=== PATIENT | male | born 2005 | race Caucasian/White ===

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

== ENCOUNTER 2024-01-08 11:18 | Outpatient (CLI) | payer SELFPAY ==
[2024-01-08 11:35] LABS: Basophils Absolute Auto 0.03 K/mm3 (0.00-0.10); Basophils Percent Auto 0.6 % (0.0-1.0); Eosinophils Absolute Auto 0.12 K/mm3 (0.02-0.50); Eosinophils Percent Auto 2.5 % (1.0-6.0); Hematocrit 43.6 % (40.0-54.0); Immature Granulocyte Absolute 0.01 K/mm3 (0.00-0.00); Immature Granulocyte Percent A 0.2 % (0.0-0.0); Lymphocytes Absolute Auto 1.51 K/mm3 (1.10-4.50); Mean Corpuscular HGB Conc 34.4 g/dL (32-36); Mean Corpuscular Hemoglobin 27.5 pg (27.0-31.0); Mean Corpuscular Volume 79.9 fL (78.0-102.0); Mean Platelet Volume 9.4 fl (8.7-11.0); Monocytes Absolute Auto 0.41 K/mm3 (0.10-0.90); Monocytes Percent Auto 8.7 % (2.0-11.0); Neutrophils Absolute Auto 2.64 K/mm3 (1.70-7.20); Platelet Count Result 309 K/mm3 (150-420); Red Blood Count 5.46 M/mm3 (4.70-6.10); Red Cell Distribution Width 11.5 % (11.6-14.4); White Blood Count 4.7 K/mm3 (4.8-10.8)
[2024-01-08 12:31] LABS: Alanine Aminotransferase 22 U/L (16-63); Albumin Level 4.3 g/dL (3.4-5.0); Alkaline Phosphatase 111 U/L (65-260); Anion Gap 8 mmol/L (4-12); Aspartate Amino Transferase 16 U/L (15-37); Bilirubin,Total 0.9 mg/dL (0.00-1.00); Blood Urea Nitrogen 11 mg/dL (7-18); Calcium 9.6 mg/dL (8.5-10.1); Carbon Dioxide 31 mmol/L (21-32); Chloride 102 mmol/L (98-108); Cholesterol 138 mg/dL (0-200); Estimated Glomerular Filt Rate > 60; Glucose 83 mg/dL (70-99); HDL Direct 45 mg/dL (40-60); LDL Cholesterol Calculated 81 mg/dL (<130); Osmolality Calculated 290 mOsm/kg (285-295); Potassium 4.5 mmol/L (3.5-5.1); Sodium 141 mmol/L (136-145); Thyroid Stimulating Hormone 1.46 uIU/mL (0.52-4.13); Total Protein 7.6 g/dL (6.4-8.2); Triglycerides 61 mg/dL (0-150)
== END 2024-01-08 11:19 | disposition home or self-care (01) ==
DX: Z79.899 Other long term (current) drug therapy (principal)
CPT/HCPCS: 36415; 80053; 80061; 83036; 84443; 85025

== ENCOUNTER 2025-03-20 05:26 | Emergency (ER) | payer SELFPAY ==
--- NOTE | ~2025-03-20 | XR_ITS ---
XR knee RT min 4V 03/20/2025 05:54 INDICATION: Right knee pain PROCEDURE: 4 views right knee COMPARISON: No prior studies for comparison. FINDINGS: Fracture, dislocation or subluxation is not identified. The soft tissues appear within norm al limits. No foreign bodies are identified. IMPRESSION: 1: NO ACUTE BONE OR JOINT ABNORMALITY IDENTIFIED. Reviewed, dictated and finalized at location A.
[2025-03-20 05:26] VITALS: BP 132/77; PULSE 92; RESP 16; TEMP 37.1; O2SAT 99
--- OUTSIDE RECORDS SUMMARY | 2025-03-20 05:29 | XMS_ITS | Clinical Summary ---
Author Organization [facility] Address [address] [place] [address] Care Team Providers Care Nurse Staff Industrial Name Role Phone No, Physician Primary Care Provider [phone] Allergies No known active allergies Medications No known medications Active Problems Problem Noted Date Diagnosed Date Phimosis 08/19/2009 Immunizations Immunization Administration Dates Next Due Tdap 06/19/2024 Social History Tobacco Use Types Packs/Day Years Used Date Smoking Tobacco: Never Assessed Personal Safety Answer Date Recorded Have you ever been in or are you currently in a harmful physical or emotional relationship or is someone making you feel afraid or unsafe? 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 Gender Identity Not on file Sexual Orientation Not on file Obstetrics History Last Filed Vital Signs Vital Sign Reading Time Taken Comments Blood Pressure 118/71 06/19/2024 12:42 PM CDT Pulse 70 06/19/2024 12:42 PM CDT Temperature 36.7 C (98 F) 06/19/2024 11:38 AM CDT Respiratory Rate 16 06/19/2024 12:42 PM CDT Oxygen Saturation 100% 06/19/2024 12:42 PM CDT Inhaled Oxygen Concentration - - Weight 81.6 kg (180 lb) 06/19/2024 11:38 AM CDT Height 185.4 cm (6' 1) 06/19/2024 11:38 AM CDT Body Mass Index 23.75 06/19/2024 11:38 AM CDT Plan of Treatment Health Maintenance Due Date Last Done Comments Depression Screening 2004 Hepatitis C Screening 2004 HPV Vaccines (1 - Male 3-dose series) 12/15/2019 Meningococcal B Vaccine (1 of 2 - Standard) 2020 Regular Well Visit/Exam 18-64 2022 Covid-19 Vaccine ( season) 2024 03/03/2021, 02/10/2021 Influenza Vaccine (#1) 2025 11/20/2019 DTaP/Tdap/Td Vaccine (8 - Td or Tdap) 06/19/2034 06/19/2024, 04/12/2016, 04/20/2009, Additional history exists Hepatitis B Screening Completed 06/19/2005 , 05/01/2005, 02/20/2005, Additional history exists Pneumococcal vaccine <65 Completed 006, 06/19/2005, 05/01/2005, Additional history exists Varicella Vaccines Completed 07/10/2011, 0 04/20/2009, 12/17/2005, Additional history exists Meningococcal Vaccine Aged Out 04/12/2016 No paras amado eligible based on patient's age to complete this topic Insurance [facility] [employer] [place] Care Teams Nurse Staff Industrial Relationship Specialty Start Date End Date No, Physician PCP - General 06/19/24
--- OUTSIDE RECORDS SUMMARY | 2025-03-20 05:29 | XMS_ITS | Referral Summary ---
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
--- OUTSIDE RECORDS SUMMARY | 2025-03-20 05:29 | XMS_ITS | Clinical Summary ---
Author Organization [facility] Address [address] [place] [address] [place] [address] Care Team Providers Care Tape Cutting Machine Operator Name Role Phone Bryan Pelletier MD Primary Care Provider Source Comments [facility],non-owned Affiliates and Associated Physician Practices is amultiple site organization consisting of ambulatory clinics and hospital sitesin [place], [place], [place] and [place]. This disclosure is being madepursuant to the Care Everywhere program and may not contain all information available regarding this patient. Last updated 18.[facility] [place] Allergies No known active allergies Medications * Be aware that medications may not be up to date on this document. Alwaysverify current medications with the patient. 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 Gender Identity Not on file Sexual Orientation Not on file Plan of Treatment Health Maintenance Due Date Last Done Comments HIV SCREENING 12/15/2019 HPV VACCINE (1 - Male 3-dose series) 12/15/2019 MENINGOCOCCAL (Group B) VACC INE SHARED DECISION-MAKING (1 of 2 - Standard) 2020 HEPATITIS C SCREENING 12/10/2022 DTAP/TDAP/TD VACCINES (1 - Tdap) 12/15/2023 HEPATITIS B VACCINE (1 of 3 - 19+ 3-dose series) 12/15/2023 COVID-19 VACCINE (2023-2 5 season) 2024 DEPRESSION SCREENING 09/02/2024 INFLUENZA VACCINE (#1) 2025 ZOSTER VACCINE (1 of 2) 2054 HIB VACCINE Aged Out No longer eligi ble based on patient's age to complete this topic MENINGOCOCCAL GROUPS A/C/Y/W VACCINE Aged Out No longer eligible b ased on patient's age to complete this topic PNEUMOCOCCAL VACCINE Aged Out No long er eligible based on patient's age to complete this topic Insurance [facility] Care Teams Tape Cutting Machine Operator Relationship Specialty Start Date End Date Bryan Pelletier MD [address] [place] [address] [place] [address] PCP - General Family Medicine 08/20/17
--- NOTE | 2025-03-20 05:39 | ED.LOWEXIN ---
HPI - Extremity Injury (Lower) General Chief Complaint: Extremity Injury, Lower <Alen Kaufman MD - Last Filed: 03/20/25 07:00> Stated Complaint: right knee injury <Alen Kaufman MD - Last Filed: 03/20/25 07:00> Time Seen by Provider: 03/20/25 05:33 <Alen Kaufman MD - Last Filed: 03/20/25 07:00> Source: patient <Alen Kaufman MD - Last Filed: 03/20/25 07:00> Mode of arrival: ambulatory <Alen Kaufman MD - Last Filed: 03/20/25 07:00> Limitations: no limitations <Alen Kaufman MD - Last Filed: 03/20/25 07:00> History of Present Illness HPI Narrative: Patient is a 19-year-old male with a right knee injury while bowling this evening. Patient went to bowl and it appeared his right knee twisted and pivoted in the wrong way and therefore his kneecap slid to the lateral aspect. His father replace the kneecap and he is here for continued pain of the knee after this event. <Alen Kaufman MD - Last Filed: 03/20/25 07:00> MD complaint: knee injury ( Right) <Alen Kaufman MD - Last Filed: 03/20/25 07:00> Onset (ago): day(s) ( 1) <Alen Kaufman MD - Last Filed: 03/20/25 07:00> Type of Injury: other ( patient has twisting of the right knee while bowling with a kneecap dislocation and resolution from his father to replace the kneecap) <Alen Kaufman MD - Last Filed: 03/20/25 07:00> Place: home <Alen Kaufman MD - Last Filed: 03/20/25 07:00> Severity: moderate <Alen Kaufman MD - Last Filed: 03/20/25 07:00> Severity scale (1-10): 4 <Alen Kaufman MD - Last Filed: 03/20/25 07:00> Relieving factors: nothing <Alen Kaufman MD - Last Filed: 03/20/25 07:00> Exacerbating factors: weight bearing, movement and palpation <Alen Kaufman MD - Last Filed: 03/20/25 07:00> Context: other ( patient was bowling and twisted right knee) <Alen Kaufman MD - Last Filed: 03/20/25 07:00> Associated symptoms: snap/pop sensation, swelling and able to partially bear weight <Alen Kaufman MD - Last Filed: 03/20/25 07:00> Other symptoms: none <Alen Kaufman MD - Last Filed: 03/20/25 07:00> Treatments prior to arrival: cold therapy <lAen Kaufman MD - Last Filed: 03/20/25 07:00> Related Data Home Medications: Home Medications ?Medication ?Instructions ?Recorded ?Confirmed ?Last Taken ?Type No Home Medications 08/23/22 03/20/25 Unknown History <Alen Kaufman MD - Last Filed: 03/20/25 07:00> Allergies/Adverse Reactions: Allergies Allergy/AdvReac Type Severity Reaction Status Date / Time No Known Allergies Allergy Verified 03/20/25 05:31 <Alen Kaufman MD - Last Filed: 03/20/25 07:00> Review of Systems Review of Systems: All systems reviewed & are unremarkable except as noted in HPI and below <Alen Kaufman MD - Last Filed: 03/20/25 07:00> Constitutional: Constitutional: Reports no additional constitutional complaints <Alen Kaufman MD - Last Filed: 03/20/25 07:00> Eyes: Eyes: Reports no additional eye complaints <Alen Kaufman MD - Last Filed: 03/20/25 07:00> ENT: Reports system reviewed and no additional complaints, except as documented <Alen Kaufman MD - Last Filed: 03/20/25 07:00> Cardiovascular: Cardiovascular: Reports no additional cardiovascular complaints <Alen Kaufman MD - Last Filed: 03/20/25 07:00> Respiratory: Respiratory: Reports no additional respiratory complaints <Alen Kaufman MD - Last Filed: 03/20/25 07:00> Gastrointestinal: Gastrointestinal: Reports no additional gastrointestinal complaints <Alen Kaufman MD - Last Filed: 03/20/25 07:00> Genitourinary: Genitourinary: Reports no additional male genitourinary complaints <Alen Kaufman MD - Last Filed: 03/20/25 07:00> Musculoskeletal: Musculoskeletal: Reports no additional musculoskeletal complaints <Alen Kaufman MD - Last Filed: 03/20/25 07:00> Integumentary/Breasts: Skin/Breast: Reports system reviewed and no additional complaints, except as docu <Alen Kaufman MD - Last Filed: 03/20/25 07:00> Neurologic: Reports system reviewed and no additional complaints, except as documented <Alen Kaufman MD - Last Filed: 03/20/25 07:00> Psychiatric: Psychiatric: Reports no additional psychiatric complaints <Alen Kaufman MD - Last Filed: 03/20/25 07:00> Endocrine: Endocrine: Reports no additional endocrine complaints <Alen Kaufman MD - Last Filed: 03/20/25 07:00> Hematologic/Lymphatic: Hematologic/Lymphatic: Reports no additional hematologic/lymphatic complaints <Alen Kaufman MD - Last Filed: 03/20/25 07:00> Allergic/Immunologic: Allergic/Immunologic: Reports no additional allergic/immunologic complaints <Alen Kaufman MD - Last Filed: 03/20/25 07:00> PMFSH Past Medical History Medical History: Medical History Abdominal pain Strep throat GERD (gastroesophageal reflux disease) Bipolar depression <Alen Kaufman MD - Last Filed: 03/20/25 07:00> Surgical History Surgical History: Surgical History Scalp laceration No history of previous surgery <Alen Kaufman MD - Last Filed: 03/20/25 07:00> Social History Social History: Social History Smoking status: Never smoker Tobacco type: e-cigarettes/vaping Alcohol intake: never Substance use: never Substance use type: marijuana Living arrangements: with family Occupation/Education: student <Alen Kaufman MD - Last Filed: 03/20/25 07:00> Exam Const: General: healthy appearing <Alen Kaufman MD - Last Filed: 03/20/25 07:00> Nutritional Appearance: well nourished <Alen Kaufman MD - Last Filed: 03/20/25 07:00> Orientation/consciousness: patient oriented x3 <Alen Kaufman MD - Last Filed: 03/20/25 07:00> HENMT: Head: normal to inspection <Alen Kaufman MD - Last Filed: 03/20/25 07:00> Ears: external ears normal <Alen Kaufman MD - Last Filed: 03/20/25 07:00> Face/Nose/Sinus: Normal external nose present <Alen Kaufman MD - Last Filed: 03/20/25 07:00> Eyes: Conjunctivae: conjunctivae normal <MD Theo Brand Last Filed: 03/20/25 07:00> Pupils: Equal, round and reactive pupils present <Alen Kaufman MD - Last Filed: 03/20/25 07:00> EOM: EOMs intact bilaterally <Alen Kaufman MD - Last Filed: 03/20/25 07:00> Neck: Neck: normal visual inspection <Alen Kaufman MD - Last Filed: 03/20/25 07:00> Chest: Chest palpation & inspection: normal inspection of the chest <Alen Kaufman MD - Last Filed: 03/20/25 07:00> Resp: Effort & Inspection: normal respiratory effort and not labored <MD Theo Brand Last Filed: 03/20/25 07:00> Auscultation: clear to auscultation bilaterally and no crackles <Alen Kaufman MD - Last Filed: 03/20/25 07:00> Cardio: Rate: regular rate <Alen Kaufman MD - Last Filed: 03/20/25 07:00> Rhythm: regular rhythm <Alen Kaufman MD - Last Filed: 03/20/25 07:00> Heart sounds: no murmurs <Alen Kaufman MD - Last Filed: 03/20/25 07:00> GI: Inspection: non-distended <Alen Kaufman MD - Last Filed: 03/20/25 07:00> GI Palp: Yes Soft to palpation and Yes Tenderness to palpation present (GI) <Alen Kaufman MD - Last Filed: 03/20/25 07:00> Auscultation: normal bowel sounds <Alen Kaufman MD - Last Filed: 03/20/25 07:00> : General: Yes bladder normal to palpation <Alen Kaufman MD - Last Filed: 03/20/25 07:00> Back/Spine/Pelvis: Back: no CVA tenderness <Alen Kaufman MD - Last Filed: 03/20/25 07:00> Skin: General skin exam: normal color <Alen Kaufman MD - Last Filed: 03/20/25 07:00> Rashes: no rashes <Alen Kaufman MD - Last Filed: 03/20/25 07:00> Wounds: no wounds <Alen Kaufman MD - Last Filed: 03/20/25 07:00> Neuro: General: patient oriented x3, moves all extremities, no meningeal signs, no focal motor deficits and CN's II-XI intact bilaterally <Alen Kaufman MD - Last Filed: 03/20/25 07:00> Extrem: General: normal to inspection <Alen Kaufman MD - Last Filed: 03/20/25 07:00> Psych: Mental Status: mental status grossly normal <MD Theo Brand Last Filed: 03/20/25 07:00> Affect: Anxious affect present <Alen Kaufman MD - Last Filed: 03/20/25 07:00> Attitude: cooperative <Alen Kaufman MD - Last Filed: 03/20/25 07:00> Course Course Emergency Course: (699) I received report and assumed care of this patient at shift change. Patient is 19 year old male who had subluxation of his right knee cap last night while bowling. His father put the knee cap back in place. Patient states he has had this happen before. PE: no acute findings, non-tender, stable, NV intact XR R Knee: reviewed XR films, no acute findings Tx: Delvin wrap *reviewed and discussed results with patient and support person. Discussed further management. Both voice understanding and agreement. Instructions <Gelacio Gudino MD - Last Filed: 03/20/25 08:32> Vital Signs Vital signs: Vital Signs Temperature 37.1 C 03/20/25 05:26 Pulse Rate 92 03/20/25 05:26 Respiratory Rate 16 03/20/25 05:26 Blood Pressure 132/77 03/20/25 05:26 Pulse Oximetry 99 03/20/25 05:26 Oxygen Delivery Room Air 03/20/25 05:26 Temperature 37.1 C 03/20/25 05:26 Pulse Rate 92 03/20/25 05:26 Respiratory Rate 16 03/20/25 05:26 Blood Pressure 132/77 03/20/25 05:26 Pulse Oximetry 99 03/20/25 05:26 Oxygen Delivery Room Air 03/20/25 05:26 <Alen Kaufman MD - Last Filed: 03/20/25 07:00> Vital Signs Temperature 37.1 C 03/20/25 05:26 Pulse Rate 92 03/20/25 05:26 Respiratory Rate 16 03/20/25 05:26 Blood Pressure 132/77 03/20/25 05:26 Pulse Oximetry 99 03/20/25 05:26 Oxygen Delivery Room Air 03/20/25 05:26 Temperature 37.1 C 03/20/25 05:26 Pulse Rate 92 03/20/25 05:26 Respiratory Rate 16 03/20/25 05:26 Blood Pressure 132/77 03/20/25 05:26 Pulse Oximetry 99 03/20/25 05:26 Oxygen Delivery Room Air 03/20/25 05:26 <Gelacio Gudino MD - Last Filed: 03/20/25 08:32> MDM - Extremity Injury (Lower) MDM Narrative Medical decision making narrative: patient is a 19-year-old male with a right knee injury today while bowling. We will get x-rays of the right knee. Pain management with Toradol. Signed out case oncoming physician. <Alen Kaufman MD - Last Filed: 03/20/25 07:00> Imaging Data Attestation: I personally reviewed and interpreted this imaging study as follows: <Alen Kaufman MD - Last Filed: 03/20/25 07:00> Discharge Plan Discharge Clinical Impression: Patellar subluxation <Alen Kaufman MD - Last Filed: 03/20/25 07:00> Patient Disposition: Home <Alen Kaufman MD - Last Filed: 03/20/25 07:00> Condition: Stable <Alen Kaufman MD - Last Filed: 03/20/25 07:00> Instructions: Patellar Dislocation (ED) <Alen Kaufman MD - Last Filed: 03/20/25 07:00> Additional Instructions: Weight bearing as tolerated Delvin wrap, Ice and Elevate for swelling Tylenol, Ibuprofen and Aleve as needed Follow up with your Primary Care Provider <Alen Kaufman MD - Last Filed: 03/20/25 07:00> Patient Language: Estonian <Alen Kaufman MD - Last Filed: 03/20/25 07:00> Prescriptions: No Action No Home Medications <Alen Kaufman MD - Last Filed: 03/20/25 07:00> Follow-up/Referrals: Emani Olea MD [Primary Care Provider] - <Alen Kaufman MD - Last Filed: 03/20/25 07:00> Time of Disposition: 08:30 <Alen Kaufman MD - Last Filed: 03/20/25 07:00> 08:30 <Gelacio Gudino MD - Last Filed: 03/20/25 08:32>
[2025-03-20] MEDS: KETOROLAC (*BKC) 60 MG/2 ML VIAL IM (05:50)
--- OUTSIDE RECORDS SUMMARY | 2025-03-20 05:54 | XMS_ITS | Clinical Summary ---
Author Organization [facility] Address [address] [place] [address] Care Team Providers Care Mechanic General Operational Test Name Role Phone None, Provider MD Primary Care Provider Unavaila ble Allergies No known active allergies Medications sertraline (ZOLOFT) 50 MG tablet Take 1 tablet (50 mg total) by mouth daily. 4 Active ARIPiprazole (ABILIFY) 5 MG tablet Take 1 tablet (5 mg total) by mouth nightly at bedtime. 4 Active ondansetron (ZOFRAN-ODT) 4 MG disintegrating tabletIndications:N ausea and vomiting, unspecified vomiting type Take 1 tablet (4 mg total) by mouth every 8 (eight) hours as needed for Nausea. 20 tablet 5 Active famotidine (PEPCID) 20 MG tabletIndications:N ausea and vomiting, unspecified vomiting type Take 1 tablet (20 mg total) by mouth 2 (two) times daily. 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 Overview (03/26/2019): Date Onset: 06/17/2014 Phimosis 08/19/2009 Resolved Problems Problem Noted Date Diagnosed Date Resolved Date Acute upper respiratory infection 10/06/2012 10/14/2019 Fever 10/06/2012 10/14/2019 Routine infant or child health check 10/06/2012 10/14/2019 Immunizations Immunization Administration Dates Next Due Dtap 03/25/2006, 5,05/01/2005,02/01 Dtap (Generic) 04/20/2009, 6,06/19/2005,04/04,02/20/2005 Hepatitis A (Generic) 01/02/2007,06/26/2006 Hepatitis A Vaccine - 2 Dose 01/02/2007,06/26/20 Hepatitis B 06/19/2005, 5,02/20/2005,12/01 Hepatitis B Pediatric 06/19/2005, 005,02/20/2005,12/01 Hib (Generic) 06/26/2006, 6,05/01/2005,02/01 Influenza Adult (Generic) 11/20/2019 MENINGOCOCCAL A C Y&W-135 oligosaccharide (MENVEO) 04/12/2016 MMR 04/20/2009,03/25/2006 MMR (Generic) 07/10/2011,06/22/2005 Meningococcal (Generic) 04/12/2016 Pneumococcal (Generic) 12/17/2005,2004,05/01/2005,02/01 Pneumococcal (Prevnar 7) 12/17/2005,06/02,05/01/2005,02/01 Polio IPV (Ipol) 06/19/2005,05/01/2005, 5 Polio Ipv (Generic) 04/20/2009, 5,05/01/2005,02/01 Tdap (Generic) 06/19/2024,04/12/2016 Varicella Vaccine 04/20/2009,12/17/2005 Family History Medical History Relation Comments Cancer Maternal Grandmother Diabetes Maternal Grandmother Relation Status Comments Father Alive Maternal Grandmother Mother Alive Social History Tobacco Use Types Packs/Day Years Used Date Smoking Tobacco: Never Smokeless Tobacco: Never Tobacco Cessation:Counseling Given: Yes Alcohol Use Standard Drinks/Week Comments No 0 (1 standard drink = 0.6 oz pur e alcohol) AUDIT-C Answer Date Recorded Frequency of Alcohol Consumption Never 03/30/2019 Average Number of Drinks Not on file 019 Frequency of Binge Drinking Not on file 03/03 Sex and Gender Information Value Date Recorded Sex Assigned at Male 09/23/2024 7:58 PM SELLING SPECIALIST Legal Sex Male 7:50 AM CDT Gender Identity Not on file Sexual Orientation Not on file Last Filed Vital Signs Vital Sign Reading Time Taken Comments Blood Pressure 130/71 10/01/2024 1:10 PM SELLING SPECIALIST Pulse 80 10/01/2024 1:10 PM SELLING SPECIALIST Temperature 36.6 C (97.9 F) 10/01/2024 1:10 PM SELLING SPECIALIST Respiratory Rate 20 10/01/2024 1:10 PM SELLING SPECIALIST Oxygen Saturation 98% 10/01/2024 1:10 PM SELLING SPECIALIST Inhaled Oxygen Concentration - - Weight 83.4 kg (183 lb 12.8 oz) 10/01/2024 1:10 PM SELLING SPECIALIST Height 182.9 cm (6') 10/01/2024 1:10 PM SELLING SPECIALIST Body Mass Index 24.93 10/01/2024 1:10 PM SELLING SPECIALIST Plan of Treatment Health Maintenance Due Date Last Done Comments HPV Vaccines (1 - Male 3-dose series) 12/15/2019 Annual Physical 03/30/2020 03/30/2019 Meningococcal B Vaccine (1 of 2 - Standard) 2020 Hepatitis C 2022 COVID-19 Vaccine (3 - season) 2024 03/03/2021, 02/10/2021 PHQ-2 (Physician Jackson) 09/02/2024 DTaP, Tdap and Td Vaccines (8 - Td or Tdap) 06/19/2034 06/19/2024, 04/12/2016, 04/20/2009, Additional history exists Hepatitis B Vaccines Completed 06/19/2005, 06/19/2005, 05/01/2005, Additional history exists Pneumococcal Vaccine: Pediatrics (0 to 5 Years) and At-Risk Patients (6 to 49 Years) Aged Out 12/17/2005, 12/17/2005, 06/19/2005, Additional history exists No longer eligible based on patient's age to complete this topic Meningococcal Vaccine Aged Out 04/12/2016, 016 No longer eligible based on patient's age to complete this topic RSV Immunizations Under 20 Months Aged Out No longer eligible based on patient's age to complete this topic Advance Directives Documents on File Type Date Recorded Patient Soil Specialist Expl anation Legal Documents 10/14/2019 POA of Minor Power of Wellness Assistant 10/08/2019 9:49 AM Minor Children Medical Power of Atorney Legal Documents 03/30/2019 medical care consent form Power of Wellness Assistant 08/22/2017 POA Care Teams Mechanic General Operational Test Relationship Specialty Start Date End Date None, Provider, MD PCP - General UNKNOWN PHYSICIAN SPECIALTY 07/04/23
--- OUTSIDE RECORDS SUMMARY | 2025-03-20 05:54 | XMS_ITS | Clinical Summary ---
Author Organization 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
--- OUTSIDE RECORDS SUMMARY | 2025-03-20 05:54 | XMS_ITS | Referral Summary ---
Author Organization [facility] Address [address] [place] [address] Care Team Providers Care Gas Main And Line Fitter Name Role Phone No, Physician Primary Care Provider [phone] Allergies No known active allergies Medications No [...] on file Legal Sex Male 8:14 AM MOLDER PIPE COVERING Gender Identity Not on file Sexual Orientation [...] Plan of Treatment Not on file Insurance [facility] [employer] ASRM[place] [facility] [place] [place] Care Teams Gas Main And Line Fitter Relationship Specialty Start Date End Date No, Physician PCP - General 06/19/24
--- OUTSIDE RECORDS SUMMARY | 2025-03-20 05:54 | XMS_ITS | Clinical Summary ---
Author Organization [facility] Address [address] [place] [address] [place] [address] Care Team Providers Care Specimen Technician Name Role Phone Bryan Pelletier MD Primary Care Provider Source Comments [facility],non-owned Affiliates and Associated Physician Practices is amultiple site organization consisting of ambulatory clinics and hospital sitesin [place], [place], [place] and [place]. This disclosure is being madepursuant to the Care Everywhere program and may not contain all information available regarding this patient. Last updated 18.[facility] [employer] Allergies No known active allergies Medications * [...] on file Legal Sex Male 9:27 AM HEAT TREATMENT TECHNICIAN Gender Identity Not on file Sexual Orientation [...] patient's age to complete this topic Insurance [facility] Care Teams Specimen Technician Relationship Specialty Start Date End Date Bryan Pelletier MD [address] [place] [address] [place] [address] PCP - General Family Medicine 08/20/17
[2025-03-20 08:31] VITALS: BP 125/79; PULSE 63; RESP 16; TEMP 36.6; O2SAT 99
== END 2025-03-20 08:35 | disposition home or self-care (01) ==
PROVIDERS: Emergency Provider Emergency Medicine; PCP Internal Medicine
DX: S83.001A Unspecified subluxation of right patella, initial encounter (principal); X50.0XXA Overexertion from strenuous movement or load, initial encounter; Y93.54 Activity, bowling
CPT/HCPCS: 73564; 96372; 99283; J1885